=== PATIENT | male | born 1960 | race Caucasian/White ===

== ENCOUNTER 2017-12-18 14:40 | Emergency (ER) | payer OTHER ==
[~2017-12-18] VITALS: Ht 180.3 cm; Wt 124.7 kg
[2017-12-18 16:31] LABS: BASOPHILS # (AUTO) 0.2 (0.0-0.1); BASOPHILS % 1.3 % (0.0-1.0); EOSINOPHILS # (AUTO) 0.1 (0.0-0.4); EOSINOPHILS % 0.9 % (0.0-6.0); HEMATOCRIT 45.3 % (38.2-49.6); HEMOGLOBIN 15.3 g/dL (14.0-18.0); LYMPHOCYTES # (AUTO) 9.6 (1.0-3.2); LYMPHOCYTES % 63.9 % (18.0-39.1); MEAN CORPUSCULAR HGB CONC 33.8 g/dL (31-35); MEAN CORPUSCULAR VOLUME 88.8 fL (81-99); MONOCYTES % 6.4 % (4.4-11.3); NEUTROPHILS # (AUTO) 3.9 (2.1-6.9); NEUTROPHILS % 25.7 % (38.7-80.0); PLATELET COUNT 229 x10e3/uL (140-360); RED CELL DISTRIBUTION WIDTH 13.5 % (11.7-14.4)
--- NOTE | 2017-12-18 16:38 | Diagnostic Imaging Report ---
PROCEDURE: Frontal and lateral views of the chest. COMPARISON: None. INDICATIONS: COUGH, FEVER FINDINGS: Lines/tubes: None. Lungs: Low lung volumes. There is no evidence of pneumonia or pulmonary edema. Pleura: There is no pleural effusion or pneumothorax. Heart and mediastinum: The heart and the mediastinum are normal. Bones: No acute bony abnormality. IMPRESSION: 1. No acute cardiopulmonary disease. Dictated by: Fernando Cordero M.D. on 12/18/2017 at 16:38 Electronically approved by: Fernando Cordero M.D. on 12/18/2017 at 16:38
[2017-12-18 16:45] LABS: ALANINE AMINOTRANSFERASE 163 IU/L (0-55); ALBUMIN 3.3 g/dL (3.5-5.0); ALBUMIN/GLOBULIN RATIO 0.8 (0.8-2.0); ALKALINE PHOSPHATASE 135 IU/L (40-150); ANION GAP 14.6 mmol/L (8-16); BLOOD UREA NITROGEN 8 mg/dL (7-26); BUN/CREATININE RATIO 9 (6-25); CALCIUM 8.5 mg/dL (8.4-10.2); CARBON DIOXIDE 20 mmol/L (22-29); CHLORIDE 101 mmol/L (98-107); EST GLOMERULAR FILTRATION RATE > 60 ML/MIN (60-); GLUCOSE 96 mg/dL (74-118); POTASSIUM 3.6 mmol/L (3.5-5.1); SODIUM 132 mmol/L (136-145)
[2017-12-18] MEDS ORDERED: KETOROLAC TROMETHAMINE 30 MG/ML VIAL IV STA (17:25)
[2017-12-18] MEDS ORDERED: SODIUM CHLORIDE 0.9% 1000ML 1,000 ML IV ONE (17:30)
[2017-12-18 18:31] LABS: EOSINOPHILS % (MANUAL) 2 % (0-7); LYMPHOCYTES % (MANUAL) 25 % (19-48); MONOCYTES % (MANUAL) 14 % (3.4-9.0); NEUTROPHILS % (MANUAL) 37 % (40-74)
[2017-12-18 18:32] LABS: PLATELET ESTIMATE ADEQUATE; PLATELET MORPHOLOGY COMMENT NORMAL; RBC MORPHOLOGY COMMENT NORMAL
--- NOTE | 2017-12-18 18:37 | Diagnostic Imaging Report ---
EXAM: CT Chest , abdomen, and pelvis WITH contrast 12/18/2017 5:30 PM INDICATION: \S\R/O pe \[id number] \S\[id number] COMPARISON: None TECHNIQUE: Chest, abdomen, and pelvis were scanned utilizing a multidetector helical scanner from the lung apex through the level of the pubic symphysis following administration of IV contrast. Coronal and sagittal reformations were obtained. PE chest and routine abdomen particles were performed. IV CONTRAST: 100 mL of Isovue-370 COMPLICATIONS: None RADIATION DOSE: Total DLP: 1498.97 mGy*cm Estimated effective dose: (DLP x 0.014 x size factor) mSv CTDIvol has been reviewed. It is below the limits set by the Radiation Protocol Committee (RPC). FINDINGS: LINES and TUBES: None. LUNGS AND AIRWAYS: No filling defects within pulmonary arteries. Evaluation of the lungs are limited by respiratory motion. There is diffuse groundglass haziness of the lungs. Tiny right upper lobe calcified granuloma (series 3, image 54). Another anterior right middle lobe calcified granuloma (3/78). Airways are normal. PLEURA: The pleural spaces are clear. HEART AND MEDIASTINUM: The thyroid gland is normal. Scattered subcentimeter mediastinal lymph nodes. Bilateral hilar adenopathy, measuring up to 1.4 cm on the right side. No axillary lymphadenopathy. The heart is normal in size.. There is no pericardial effusion. HEPATOBILIARY: Mild hepatomegaly. No focal hepatic lesions. No biliary ductal dilation. GALLBLADDER: No radio-opaque stones or sludge. No wall thickening. SPLEEN: Splenomegaly. PANCREAS: No focal masses or ductal dilatation. ADRENALS: No adrenal nodules KIDNEYS/URETERS: Kidneys enhance symmetrically. No hydronephrosis. No cystic or solid mass lesions. No stones. GI TRACT: No abnormal distention, wall thickening, or evidence of bowel obstruction. Appendix is normal. PELVIC ORGANS/BLADDER: Unremarkable. LYMPH NODES: 1.8 cm portacaval lymph node (series 5, image 32). 1.3 cm periportal lymph nodes (series 5, images 28 and 29). 1.1 cm robinson hepatis lymph node (series 5, image 30). VESSELS: Unremarkable. PERITONEUM / RETROPERITONEUM: No free air or fluid. BONES: Unremarkable. SOFT TISSUES: Small fat-containing left inguinal hernia. IMPRESSION: 1. No evidence of pulmonary embolism. 2. Bilateral hilar adenopathy. There are also enlarged indeterminate periportal and portacaval lymph nodes. Recommend attention on follow-up examination. 3. Diffuse groundglass haziness of the lungs could represent mild interstitial edema or be artifactual. 4. No evidence of perianal abscess. 5. Hepatosplenomegaly. Signed by: Dr. Fernando Cordero MD on 12/18/2017 6:33 PM
[2017-12-18 19:48] VITALS: BP 115/76
[2017-12-18] MEDS ORDERED: SODIUM CHLORIDE 0.9% 50ML 50 ML ONE (22:34)
[2017-12-18] MEDS ORDERED: IOPAMIDOL 370 MG/ML 200 ML INFUS..BTL INJ ONE (22:34)
== END 2017-12-18 19:56 | disposition home or self-care (01) ==
LOC: ER 14:40
DX: R50.9 Fever, unspecified (principal); R05 Cough; J18.9 Pneumonia, unspecified organism
CPT/HCPCS: 36415; 71046; 71260; 74177; 80053; 85025; 85379; 87040; 87400; 99284; J7030; Q9967; J1885